=== PATIENT | female | born 1995 ===

== ENCOUNTER 2024-10-04 15:20 | Emergency (ER) | payer MEDICAID, SELFPAY ==
--- NOTE | 2024-10-04 | ECG_ITS ---
Test Reason : CHEST PAIN Blood Pressure : */* mmHG Vent. Rate : 70 BPM Atrial Rate : 70 BPM P-R Int : 126 ms QRS Dur : 92 ms QT Int : 394 ms P-R-T Axes : 58 61 58 degrees QTcB Int : 425 ms Sinus rhythm with marked sinus arrhythmia with occasional Premature ventricular complexes Otherwise normal ECG No previous ECGs available Referred By: Generic ED Physician Electronically Signed By: Lino Meyer
--- NOTE | ~2024-10-04 | US_ITS ---
CLINICAL HISTORY: RUQ tender US abdomen limited Comparison: None Findings: The visualized pancreas is normal. The aorta and inferior vena cava are normal caliber. The appearance of the liver suggests fatty infiltration without focal lesion. There is no intrahepatic bile duct dilatation. The common duct is 4.0 mm in diameter. There are gallstones. The gallbladder is otherwise normal. There is no sonographic Garcia sign. The main portal vein is antegrade. The right kidney is 12.1 cm in length. No ascites. IMPRESSION: Unremarkable limited abdominal ultrasound. This document has been electronically signed by: David Kirby MD on 10/04/2024 18:58:01
[2024-10-04 15:31] VITALS: BP 148/96; BP 157/98; PULSE 65; PULSE 77; RESP 17; TEMP 36.6; O2SAT 100; O2SAT 99; BMI 29.8
[2024-10-04 15:38] VITALS: BP 150/93; PULSE 63; RESP 12; O2SAT 100
[2024-10-04 16:15] VITALS: BP 142/95; PULSE 70; RESP 13; TEMP 36.6; O2SAT 98
--- NOTE | 2024-10-04 16:52 | ED.CHESTPAIN ---
HPI - Chest Pain General Chief Complaint: Chest Pain Stated Complaint: CP,NAUSEA PER EMS Time Seen by Provider: 10/04/24 16:09 History of Present Illness ED Provider: Toro Pettit MD HPI narrative: Rody is a 29-year-old female with no significant medical history aside from asthma. She has had what she describes as 4 distinct similar attacks us today with right upper quadrant midepigastric discomfort shortly after eating. No fever no chills no heaviness or pressure of the chest or difficulty breathing. No personal cardiac history. She did surprisingly receive nitroglycerin and aspirin before arrival here. Related Data Allergies Allergy/AdvReac Type Severity Reaction Status Date / Time No Known Allergies Allergy Verified 10/04/24 15:34 [facility] Social History Social History Advance Directives: No Advance Directives Information Provided: No Physical Exam Vital Signs: Vital Signs: Last Vital Signs Temp 98.0 F 10/04/24 18:54 Pulse 80 10/04/24 18:54 Resp 18 10/04/24 18:54 BP 138/79 10/04/24 18:54 Pulse Ox 99 10/04/24 18:54 O2 Del Method Room Air 10/04/24 18:54 BMI result Body Mass Index 29.8 Const: Other: EXAM: Gen: Alert, awake, well appearing, well hydrated. Head: Atraumatic Eyes: Anicteric, Normal conjunctiva. ENT: Moist mucosa, no pallor. ? Neck: Supple. Respiratory: Breathing comfortably, No distress.Clear to auscultation bilaterally, symmetric chest expansion, No wheeze, rales, ronchi. Cardiovascular: Regular rate and rhythm. No murmurs or rub. Well perfused periphery, warm extremities. No edema. ? Abdominal: Soft, no objective distension. No palpable masses or obvious organomegaly. No focal tenderness, no guarding, no rebound tenderness or other peritoneal findings. : No flank tenderness. Neuro: Alert. Gross movement of all extremities intact. ? Vital signs: See flowsheet Medications Administered Discontinued Medications Generic Name Dose Route Start Last Admin Trade Name Freq PRN Reason Stop Dose Admin Ketorolac Tromethamine 15 mg 10/04/24 17:50 10/04/24 18:04 Ketorolac Tromethamine 15 Mg/Ml Vial IVPUSH 10/04/24 17:51 15 mg ONCE ONE Administration Medical Decision Making Medical Decision Making [facility] Narrative: 29-year-old female with known gallstones. No fever. No evidence of cholecystitis or biliary obstruction at this time probably symptomatic recurrent cholelithiasis Patient does have leukocytosis but this is nonspecific. She is afebrile, pain-free and not vomiting. She has no elevated bilirubin despite mild transaminitis. I do think she is getting colicky type pain what likely related to her gallstones and warrants an outpatient evaluation by General surgery but does not need any additional imaging at this time. Lab Data [facility] Lab Attestation statement: I reviewed the patient's lab results. 10/04/24 17:53 10/04/24 17:53 Labs: Lab Results 10/04/24 Range/Units 17:53 WBC 15.2 H (4.8-10.8) X10*3/uL RBC 4.24 (4.20-5.50) X10*6/uL Hgb 12.1 (12.0-16.0) g/dl Hct 35.6 L (37.0-47.0) % MCV 84.0 (80.0-98.0) fL MCH 28.5 (27.0-33.0) pg MCHC 34.0 (31.0-35.0) g/dl RDW 14.0 (11.0-16.0) % Plt Count 233 (160-400) X10*3/uL MPV 11.0 (9.4-12.3) fL Immature Gran % (Auto) 0.3 (0.0-0.4) % Neut % (Auto) 85.0 H (45-73) % Lymph % (Auto) 9.2 L (20-40) % Glenn % (Auto) 5.0 (2-11) % Eos % (Auto) 0.2 (0-4) % Baso % (Auto) 0.3 (0-2) % Lymph # (Auto) 1.4 (1.2-4.9) X10*3/uL Glenn # (Auto) 0.8 (0.1-1.2) X10*3/uL Eos # (Auto) 0.0 (0.0-0.4) X10*3/uL Baso # (Auto) 0.1 (0.0-0.2) X10*3/uL Abs Immat Gran (auto) 0.05 H (0.00-0.03) X10*3/uL Absolute Neuts (auto) 12.9 H (2.0-8.3) x10*3/uL Absolute Nucleated RBC 0.000 (0.0-0.012) X10*3/uL Nucleated RBC % (auto) 0.0 (0.0-0.2) /100WBC Sodium 141 (135-145) mmol/L Potassium 4.1 (3.3-5.1) mmol/L Chloride 107 (96-108) mmol/L Carbon Dioxide 28 (22-29) mmol/L Anion Gap 10 L (12-20) BUN 11 (9-16) mg/dL Creatinine 0.71 (0.5-1.4) mg/dL Estim Creat Clear Calc 151.8 Estimated GFR > 60 Random Glucose 92 (60-115) mg/dL Calcium 9.0 (8.4-10.2) mg/dL Total Bilirubin 0.4 (0.0-1.0) mg/dL AST 295 H (5-31) U/L ALT 125 H (0-31) U/L Alkaline Phosphatase 98 (39-117) U/L Troponin I High Sens < 2.7 (<3.5-17.0) ng/L Total Protein 6.6 (6.5-8.0) g/dL Albumin 3.7 (3.5-5.0) g/dL Lipase 10 (8-78) U/L Discharge Plan Discharge Clinical Impression: Cholelithiasis Patient Disposition: Home, Self-Care Instructions: Gallstones (ED) Additional Instructions: DISCHARGE DIAGNOSES: Symptomatic Gallstones Mild elevation of liver enzymes could be multifactorial possibly secondary to alcohol use if you do unlikely to be particularly related to gallstones at this time HISTORY OF PRESENTATION:Pain in the xiphoid region after eating EMERGENCY DEPARTMENT COURSE,TESTS, TREATMENTS: While in the ED today DISCHARGE MEDICATIONS: ?No prescribed medication FOLLOW-UP: ?Call your primary or general physician soon as possible to discuss your symptoms, your ED visit and to discuss follow up plans Call the general surgery office to schedule follow up for elective gallbladder removal INSTRUCTIONS ?& RETURN PRECAUTIONS: If any symptoms change first call your primary physician, if it is after-hours your primary doctors office should have a provider vocational counselor you can speak with. If the symptoms are severe or very concerning to you then call 911 or return to the ED. [[id number]] Toro Pettit MD Emergency Physician [facility] Referrals: Kayla Chavira MD [Physician] - 1 week Interventions: ED Discharge Assessment Last Done: 10/04/24 18:54 Discharge Date/Time: 10/04/24 18:56 Print Language: Serbian
--- OUTSIDE RECORDS SUMMARY | 2024-10-04 17:36 | XMS_ITS | Clinical Summary ---
Author Organization [facility] ity Address [address] [place] [address] Care Team Providers Care Seeing Eye Dog Trainer Name Role Phone Ama Witt MD Primary Care Provider [phone] Family History Medical History Relation Name Comments Diabetes Brother Hypertension Father Hypertension Mother Relation Name Status Comments Brother Father Mother Social History Tobacco Use Types Packs/Day Years Used Date Smoking Tobacco: Every Day Smokeless Tobacco: Current Alcohol Use Standard Drinks/Week Comments Yes 0 (1 standard drink = 0.6 oz pur e alcohol) Comments Unknown Sex and Gender Information Value Date Recorded Sex Assigned at Not on file Legal Sex Female 7:18 PM EST Gender Identity Not on file Sexual Orientation Not on file Obstetrics History Plan of Treatment Health Maintenance Due Date Last Done Comments DTaP,Tdap,and Td Vaccines (1 - Tdap) 02/11/2012 Hepatitis B Vaccines (1 of 3 - 19+ 3-dose series) 02/11/2012 Pneumococcal Vaccine: Pediat rics (0 to 5 Years) and At-Risk Patients (6 to 64 Years) (1 of 2 - PCV) 02/11/2012 Cervical Cancer Screening: P ap Smear 2014 COVID-19 Vaccine ( - 2023-2 5 season) 2024 Depression Screening 08/31/2024 HIV Screening 08/31/2024 Hepatitis C Screening 08/31/2024 Social Influencers of Health Screening 08/31/2024 Influenza Vaccine (Season Ended) 2025 HIB Vaccines Aged Out No longer eligi ble based on patient's age to complete this topic HPV Vaccines Aged Out No longer eligi ble based on patient's age to complete this topic Hepatitis A Vaccines Aged Out No long er eligible based on patient's age to complete this topic IPV Vaccines Aged Out No longer eligi ble based on patient's age to complete this topic MMR Vaccines Aged Out No longer eligi ble based on patient's age to complete this topic Meningococcal ACWY Vaccine Aged Out N o longer eligible based on patient's age to complete this topic Meningococcal B Vaccine Aged Out No l onger eligible based on patient's age to complete this topic RSV Immunization Patients Un leslie 20 months Aged Out No longer eligible b ased on patient's age to complete this topic Varicella Vaccines Aged Out No longer eligible based on patient's age to complete this topic Care Teams Seeing Eye Dog Trainer Relationship Specialty Start Date End Date Ama Witt MD PCP - General Internal Medicine 05/07/20
[2024-10-04 17:56] LABS: MANUAL DIFF FLAG NO
[2024-10-04 18:00] VITALS: BP 137/86; PULSE 72; RESP 12; O2SAT 99
[2024-10-04 18:00] LABS: Basophils Absolute Auto 0.1 X10*3/uL (0.0-0.2); Basophils Percent Auto 0.3 % (0-2); Eosinophils Percent Auto 0.2 % (0-4); Hematocrit 35.6 % (37.0-47.0); Hemoglobin 12.1 g/dl (12.0-16.0); Imm Gran Abs Auto 0.05 X10*3/uL (0.00-0.03); Imm Gran Pct Auto 0.3 % (0.0-0.4); Lymphocytes Absolute Auto 1.4 X10*3/uL (1.2-4.9); Lymphocytes Percent Auto 9.2 % (20-40); Mean Corpuscular Hemoglobin 28.5 pg (27.0-33.0); Monocytes Absolute Auto 0.8 X10*3/uL (0.1-1.2); Neutrophils Absolute Auto 12.9 x10*3/uL (2.0-8.3); Platelet Count 233 X10*3/uL (160-400); Red Blood Count 4.24 X10*6/uL (4.20-5.50); White Blood Count 15.2 X10*3/uL (4.8-10.8)
[2024-10-04] MEDS: Ketorolac Tromethamine 15 MG/ML VIAL IVPUSH (18:04)
[2024-10-04 18:13] LABS: Alanine Aminotransferase 125 U/L (0-31); Albumin Level 3.7 g/dL (3.5-5.0); Alkaline Phosphatase 98 U/L (39-117); Anion Gap 10 (12-20); Aspartate Amino Transferase 295 U/L (5-31); Bilirubin Total 0.4 mg/dL (0.0-1.0); Blood Urea Nitrogen 11 mg/dL (9-16); Carbon Dioxide 28 mmol/L (22-29); Chloride 107 mmol/L (96-108); Creatinine Clr Calc Pharmacy 151.8; Estimated Glomerular Filt Rate > 60; Glucose Random 92 mg/dL (60-115); Lipase 10 U/L (8-78); Potassium 4.1 mmol/L (3.3-5.1); Sodium 141 mmol/L (135-145); Total Protein 6.6 g/dL (6.5-8.0)
[2024-10-04 18:21] LABS: Troponin-I High Sensitivity < 2.7 ng/L (<3.5-17.0)
[2024-10-04 18:48] VITALS: BP 138/79; PULSE 80; RESP 18; TEMP 36.7; O2SAT 99
[2024-10-04 18:54] VITALS: BP 138/79; PULSE 80; RESP 18; TEMP 36.7; O2SAT 99
== END 2024-10-04 18:56 | disposition home or self-care (01) ==
PROVIDERS: Emergency Provider Emergency Medicine
DX: K80.20 Calculus of gallbladder without cholecystitis without obstruction (principal); R07.89 Other chest pain; R11.2 Nausea with vomiting, unspecified; R10.11 Right upper quadrant pain; Z79.899 Other long term (current) drug therapy
CPT/HCPCS: 36415; 76705; 80053; 83690; 84484; 85025; 93005; 96374; 99284; 99285; J1885

== ENCOUNTER → 2024-10-04 15:29 | Outpatient (BNV) | payer MEDICAID, SELFPAY | PROVIDERS: Emergency Provider Emergency Medicine; Visit Provider Internal Medicine Cardiovascular Disease | DX: I49.3 Ventricular premature depolarization (principal) | CPT/HCPCS: 93010 ==

== ENCOUNTER → 2024-10-04 17:35 | Outpatient (BNV) | payer OTHER, SELFPAY | PROVIDERS: Emergency Provider Emergency Medicine; Visit Provider Specialist | DX: R10.811 Right upper quadrant abdominal tenderness (principal) | CPT/HCPCS: 76705 ==